=== PATIENT | female | born 1965 | race Caucasian/White ===

== ENCOUNTER 2017-08-22 10:36 | Observation (INO) ==
[2017-08-22] MEDS ORDERED: ZOFRAN INJ 4 MG VIAL IVP PRN (12:19)
[2017-08-22 13:16] LABS: BASOPHILS % (AUTO) 0.4 % (0.2-1.0); EOSINOPHILS # (AUTO) 0.1 x10^3/uL (0.0-0.2); EOSINOPHILS % (AUTO) 0.8 % (0.9-2.9); HEMATOCRIT 33.8 % (36.0-47.0); HEMOGLOBIN 11.7 g/dL (12.0-16.0); LYMPHOCYTES # (AUTO) 1.4 X10^3/uL (1.3-2.9); LYMPHOCYTES % (AUTO) 19.2 % (21.0-51.0); MEAN CORPUSCULAR HEMOGLOBIN 30.5 pg (27.0-34.0); MEAN CORPUSCULAR HGB CONC 34.8 g/dL (33.0-35.0); MEAN CORPUSCULAR VOLUME 87.7 fL (80.0-100.0); MEAN PLATELET VOLUME 8.4 fL (7.4-11.0); MONOCYTES # (AUTO) 0.5 x10^3/uL (0.3-0.8); MONOCYTES % (AUTO) 6.4 % (0.0-13.0); NEUTROPHILS # (AUTO) 5.5 x10^3/uL (2.2-4.8); NEUTROPHILS % (AUTO) 73.2 % (42.0-75.0); PLATELET COUNT 230 X10^3/uL (150.0-450.0); RED BLOOD COUNT 3.85 X10^6/uL (3.5-5.4); RED CELL DISTRIBUTION WIDTH 13.7 % (11.6-16.5); WHITE BLOOD COUNT 7.5 X10^3/uL (3.6-10.0)
[2017-08-22] MEDS: NS 1000 ML 1,000 ML IV SCH (13:16)
[2017-08-22] MEDS: PEPCID 20 MG IV PREMIX* 20 MG/50 ML BAG IV SCH ×2 (13:17→20:06)
[2017-08-22 13:22] LABS: ALANINE AMINOTRANSFERASE 34 Units/L (12-78); ALKALINE PHOSPHATASE 106 Units/L (46-116); ASPARTATE AMINO TRANSFERASE 15 Units/L (15-37); BLOOD UREA NITROGEN 13 mg/dL (7-18); CARBON DIOXIDE 29.2 mmol/L (21-32); CHLORIDE 103 mmol/L (98-107); COR CA(FOR HYPOALB) 8.8 mg/dL (8.5-10.1); COR NA(FOR HYPERGLY) 142 mmol/L (136-145); CREATININE 0.86 mg/dL (0.55-1.02); SODIUM 141 mmol/L (136-145); TOTAL PROTEIN 6.9 g/dL (6.4-8.2); eGFR NON BLACK RACES > 60 (>60)
[2017-08-22] MEDS: PROTONIX INJ 40 MG VIAL IVP SCH ×2 (13:25→20:04)
[2017-08-22 13:51] LABS: HEMOGLOBIN A1C 6.7 %
--- NOTE | 2017-08-22 14:00 | DR.UPDATE ---
H&P Update History and Physical Update: PRESENTED TO THE OFFICE TWO DAYS AGO WITH COMPLAINTS OF GENERALIZED WEAKNESS, DIARRHEA, ABDOMINAL PAIN, AND FEVER. OUTPATIENT LABS WERE DRAWN AND STOOL STUDIES WERE OBTAINED. STOOL STUDIES WERE POSITIVE FOR WBC AND OCCULT BLOOD. SHE RETURNED TODAY WITH NO IMPROVEMENT IN SYMPTOMS. PATIENT ADMITTED FOR FURTHER EVALUATION AND TREATMENT. ON ADMISSION, WE WILL OBTAIN CBC, CMP, HGB A1C , AND AN ABD/PELVIS CT W/WO CONTRAST. SHE WILL BE STARTED ON NORMAL SALINE AT 125ML/HR. OTHERWISE, WE WILL FOLLOW UP WITH AM LABS AND CONTINUE TO MONITOR PATIENT. Changes noted: NO Yes with the following:
[2017-08-22] MEDS ORDERED: K-LYTE EFFERVESCENT PO PRN (14:03)
[2017-08-22] MEDS ORDERED: POTASSIUM CHL 60 MEQ/NS 0.45% 500 ML IV PRN (14:03)
[2017-08-22] MEDS ORDERED: POTASSIUM CHLORIDE LIQ 20 MEQ UDC PO PRN (14:03)
[2017-08-22] MEDS ORDERED: POTASSIUM CHL 40 MEQ/NS 0.45% 500 ML IV PRN (14:03)
[2017-08-22] MEDS ORDERED: K-RIDER 10 MEQ/NS 100 ML 10 MEQ/100 ML BAG IV PRN (14:03)
[2017-08-22 15:53] LABS: BILIRUBIN,URINE NEGATIVE (NEGATIVE); BLOOD/HEMOGLOBIN,URINE NEGATIVE (NEGATIVE); GLUCOSE, URINE NEGATIVE (NEGATIVE); KETONES,URINE NEGATIVE (NEGATIVE); LEUKOCYTE ESTERASE ,URINE 1+ (NEGATIVE); NITRITES,URINE NEGATIVE (NEGATIVE); PROTEIN,URINE 1+ (NEGATIVE); UROBILINOGEN,URINE NORMAL (NORMAL)
[2017-08-22 16:11] LABS: APPEARANCE,URINE CLEAR (CLEAR); BACTERIA,URINE TRACE /HPF (NEGATIVE); COLOR,URINE YELLOW (YELLOW); RBC,URINE 0-2 /HPF (NONE SEEN); SQUAMOUS EPITHELIAL CELL,UR RARE /HPF (NEGATIVE)
[2017-08-22 16:12] LABS: MUCUS,URINE FEW /HPF (NEGATIVE)
[2017-08-22] MEDS: TYLENOL 325 MG TAB PO PRN (16:21)
[2017-08-22] MEDS: MOTRIN TAB 800 MG PO PRN (19:58)
[2017-08-22 22:17] VITALS: BMI 35.0
[2017-08-23] MEDS: NS 1000 ML 1,000 ML IV SCH ×2 (00:02→03:34)
[2017-08-23] MEDS: TYLENOL 325 MG TAB PO PRN (03:34)
[2017-08-23 06:03] LABS: BASOPHILS % (AUTO) 0.6 % (0.2-1.0); EOSINOPHILS # (AUTO) 0.1 x10^3/uL (0.0-0.2); EOSINOPHILS % (AUTO) 1.5 % (0.9-2.9); HEMATOCRIT 27.1 % (36.0-47.0); HEMOGLOBIN 9.7 g/dL (12.0-16.0); LYMPHOCYTES # (AUTO) 1.8 X10^3/uL (1.3-2.9); LYMPHOCYTES % (AUTO) 36.3 % (21.0-51.0); MEAN CORPUSCULAR HEMOGLOBIN 31.3 pg (27.0-34.0); MEAN CORPUSCULAR HGB CONC 35.9 g/dL (33.0-35.0); MEAN CORPUSCULAR VOLUME 87.3 fL (80.0-100.0); MEAN PLATELET VOLUME 8.4 fL (7.4-11.0); MONOCYTES # (AUTO) 0.4 x10^3/uL (0.3-0.8); MONOCYTES % (AUTO) 7.7 % (0.0-13.0); NEUTROPHILS # (AUTO) 2.7 x10^3/uL (2.2-4.8); NEUTROPHILS % (AUTO) 53.9 % (42.0-75.0); PLATELET COUNT 213 X10^3/uL (150.0-450.0); RED BLOOD COUNT 3.11 X10^6/uL (3.5-5.4); WHITE BLOOD COUNT 5.1 X10^3/uL (3.6-10.0)
[2017-08-23] MEDS: MOTRIN TAB 800 MG PO PRN (06:16)
[2017-08-23 06:17] LABS: ALANINE AMINOTRANSFERASE 30 Units/L (12-78); ALBUMIN 2.5 g/dL (3.4-5.0); ALKALINE PHOSPHATASE 76 Units/L (46-116); ASPARTATE AMINO TRANSFERASE 15 Units/L (15-37); BLOOD UREA NITROGEN 13 mg/dL (7-18); CALCIUM 8.6 mg/dL (8.5-10.1); CARBON DIOXIDE 27.6 mmol/L (21-32); CHLORIDE 106 mmol/L (98-107); COR CA(FOR HYPOALB) 9.8 mg/dL (8.5-10.1); CREATININE 0.81 mg/dL (0.55-1.02); SODIUM 141 mmol/L (136-145); TOTAL PROTEIN 5.7 g/dL (6.4-8.2); eGFR NON BLACK RACES > 60 (>60)
--- NOTE | 2017-08-23 07:52 | CT ---
HISTORY: Abdominal pain Study: CT abdomen pelvis with contrast Comparison: None Technique: Axial post-contrast images with coronal and sagittal reformats. Dose reduction procedures were used with mA/kv adjusted for body size. Findings: The lung bases are clear. There is a small hiatal hernia present. The liver, spleen, adrenal glands, and pancreas are within normal limits. No opaque stones are visible within the gallbladder. The kidne ys are unobstructed and without stones or masses. No ureteral calculi are identified. Minimal calcifi c atherosclerotic changes present in a nondilated abdominal aorta. No enlarged intraperitoneal or ret roperitoneal lymphadenopathy is identified. The appendix is normal. There are no findings suggestive of diverticulitis or colitis. There are no findings suggestive of small or large bowel obstruction. E xamination of the pelvis demonstrated no evidence for pelvic masses, pelvic fluid, or pelvic lymphade nopathy. There is limited evaluation of the bladder as it is nearly empty. No inguinal hernia or ingu inal adenopathy is identified. No lytic or blastic skeletal lesions are identified. IMPRESSION: No significant abnormality identified Reported By:
[2017-08-23] MEDS: PEPCID 20 MG IV PREMIX* 20 MG/50 ML BAG IV SCH (09:37)
[2017-08-23] MEDS: PROTONIX INJ 40 MG VIAL IVP SCH (09:38)
[2017-08-23] MEDS ORDERED: PATIENT'S HOME MEDICATION (Losartan-Hydrochlorothiazide [Losartan-Hydrochlorothiazide] 1 T PO SCH (09:45)
[2017-08-23] MEDS ORDERED: PATIENT'S HOME MEDICATION (Cholecalciferol (Vitamin D3) [Vitamin D3] 5,000 UNIT) PO SCH (09:45)
[2017-08-23] MEDS ORDERED: HYZAAR 50/12.5 MG PO SCH (10:00)
[2017-08-23] MEDS ORDERED: SYNTHROID 75 mcg TAB PO SCH (10:00)
[2017-08-23 13:25] VITALS: BP 122/65
[2017-08-23] MEDS ORDERED: CRESTOR TAB 10 MG PO SCH (21:00)
[2017-08-23] MEDS ORDERED: XANAX PO SCH (21:00)
[2017-08-23] MEDS ORDERED: ROSUVASTATIN 5 MG PO SCH (21:00)
[2017-08-24] MEDS ORDERED: VITAMIN D3 PO SCH (09:00)
[2017-08-24] MEDS ORDERED: K-DUR TAB 20 MEQ PO ONE (09:36)
--- NOTE | 2017-09-12 22:54 | DR.CARTERD ---
- Discharge Summary for: Discharge Summary for Date of:: 08/23/17 - Admission Date Date of Admission: 08/22/17 - Admission Diagnoses Admission Diagnosis: 1. Abdominal pain 2. Fever 3. Diarrhea - Discharge Date Discharge Date: 08/23/17 - Discharge Diagnoses Discharge Diagnosis: 1. Abdominal pain 2. Fever 3. Diarrhea - Hospital Course Hospital Course: Ms. Sharpe presented to the hospital as a direct admission after being seen in the office with reports of fever, abdominal pain and diarrhea. Patient reported symptoms started two days prior and had worsened since onset. Patient stated fever had been as high as 100.8 and had been taking Tylenol and Motrin around the clock which had helped. Reported symptoms included chills, fatigue, diarrhea and indigestion. Abdomen noted to be round with hyperactive bowel sounds throughout. Patient admitted to the hospital as observation for further evaluation and treatment. Abnormal Labs: Hgb 11.7, Hct 33.8, Lymph% 19.2, Eos% 0.8, Neut# 5.5, Potassium 2.9, Glucose 157, Calcium 157, Calcium 8.0, Albumin 3.0, A/G Ratio 0.8. Urinalysis: Protein 1+, Leuk Est 1+, RBC 0-2, WBC 0-2, Bacteria Trace, Mucus Few, Urine Culture obtained. We continued to monitor. On day two, an abd/pelvis CT was obtained and was negative for acute abnormality. We discussed report with patient and she voiced understanding. Patient reported she was feeling better. She reported that abdominal pain had greatly improved, along with diarrhea. Vitals stable, afebrile. Labs wnl. We planned for discharge. Instructions for medications and follow up were discussed with patient and family, both voiced understanding. Patient discharged home in stable condition with family. - Discharge Medications Discharge Medications: Home Medication List alprazolam 0.5 mg PO HS 08/22/17 [History] aspirin 325 mg PO DAILY 08/22/17 [History] cholecalciferol (vitamin D3) [Vitamin D3] 5,000 unit PO DAILY 08/22/17 [History] docusate sodium 100 mg PO BID PRN 08/22/17 [History] famotidine 40 mg PO HS 08/22/17 [History] levothyroxine 75 mcg PO DAILY 08/22/17 [History] losartan-hydrochlorothiazide 1 tab PO DAILY 08/22/17 [History] rosuvastatin 5 mg PO DAILY 08/22/17 [History] levofloxacin [Levaquin] 750 mg PO DAILY #10 tab 08/23/17 [Rx] pantoprazole [Protonix] 40 mg PO BID #60 tab 08/23/17 [Rx] Prescriptions: levofloxacin [Levaquin] Sandor Roque pantoprazole [Protonix] Sandor Roque - Discharge Disposition Discharge Disposition: Patient is to follow up in our office in one week.
== END 2017-08-23 12:50 | disposition home or self-care (01) ==
LOC: MED/SURG
PROVIDERS: ADMIT Internal Medicine; ATTEND Internal Medicine
DX: R19.7 Diarrhea, unspecified; E87.6 Hypokalemia; R73.09 Other abnormal glucose; E86.0 Dehydration; D64.89 Other specified anemias; F41.8 Other specified anxiety disorders; I10 Essential (primary) hypertension; E55.9 Vitamin D deficiency, unspecified; E03.8 Other specified hypothyroidism; K21.9 Gastro-esophageal reflux disease without esophagitis; R10.84 Generalized abdominal pain
CPT/HCPCS: 36415; 74177; 80053; 81001; 83036; 83735; 85025; 87086; A4222; C9113; S0028; G0378; J2405; J3480; J3490; J7030